=== PATIENT | male | born 1970 | race Caucasian/White ===

== ENCOUNTER → 2021-02-21 15:01 | Outpatient (BNVA) | payer OTHER, SELFPAY | PROVIDERS: Referring Provider Family Medicine; Visit Provider Orthopaedic Surgery | DX: S49.91XA Unspecified injury of right shoulder and upper arm, initial encounter (principal); X58.XXXA Exposure to other specified factors, initial encounter | CPT/HCPCS: 73030 ==

== ENCOUNTER 2022-07-04 09:37 | Day surgery (SDC) | payer OTHER, SELFPAY ==
[2022-07-03 13:41] VITALS: BMI 42.7
[2022-07-04] VITALS (9 sets, daily range): BP systolic 144–182; BP diastolic 79–114; PULSE 48–65; RESP 16–18; TEMP 36.1–36.2; O2SAT 91–97
[2022-07-04] MEDS: sodium chloride 0.9% 1,000 ML 30 ML IV (10:06)
[2022-07-04] MEDS: acetaminophen 500 mg Tablet 1000 MG PO (10:07)
[2022-07-04] MEDS: CELEcoxib 200 mg Capsule 400 MG PO (10:08)
--- NOTE | 2022-07-04 10:43 | ANES.PREANE2 ---
Pre-Anesthetic Assessment Height/Weight: Height 1.98 m Weight 167.829 kg Temp Pulse Resp BP Pulse Ox O2 Del Method 97.0 F L 65 17 161/110 97 07/04/22 09:52 07/04/22 09:52 07/04/22 09:52 07/04/22 09:52 07/04/22 09:52 07/04/22 09:54 Preop Diagnosis: Right shoulder pain Operation Date: 07/04/22 11:30 Proposed Procedures p right shoulder arthroscopy with debridement:18488 M75.01(Right) - Elio Armando MD Familial anesthetic complications: Slow to wake up after his back surgery Was Beta Eva taken within 24 hours: N/A Was Clonidine taken within 24 hours: N/A Last intake: Intake Last Liquid Date 07/03/22 Last Liquid Time 23:15 Last Solid Date 07/03/22 Last Solid Time 19:00 Social Tobacco and No alcohol Exam alert, oriented x 3, clear to auscultation bilaterally and regular rate & rhythm Airway Mallampati: Class IV Dentition: full Metabolic Morbid Obesity Anesthetic Plan ASA status: 2 Anesthesia: General Other: patient declining nerve block Risk of > 500 ml blood loss (7ml/kg in children): No Medications/Allergies Home Medications Medication Instructions Recorded Confirmed Last Taken Type No Known Home Medications 02/21/21 07/04/22 Unknown History Allergies Allergy/AdvReac Type Severity Reaction Status Date / Time No Known Allergies Allergy Verified 07/04/22 09:53 Current Medications Generic Name Dose Route Start Last Admin Trade Name Freq PRN Reason Stop Dose Admin Sodium Chloride 1,000 mls @ 30 mls/hr 07/04/22 10:00 07/04/22 10:06 Sodium Chloride 0.9% IV 07/05/22 09:59 30 mls/hr .Q24H RASHID Administration PFSH Anesthesia Social History Smoking and tobacco status: current every day smoker Alcohol intake: never Data Anesthesia Cardiac Studies: No Data to Display
--- NOTE | 2022-07-04 12:20 | P.HP_ITS ---
Same Day Surgery H&P Indication for Procedure/HPI DATE OF PROCEDURE: July 04, 2022 CHIEF COMPLAINT/INDICATIONFOR SURGICAL PROCEDURE: Right shoulder pain here for diagnostic arthroscopy right shoulder PREOP DIAGNOSIS: Right shoulder pain PLANNED PROCEDURE: Operation Date: 07/04/22 11:30 Proposed Procedures p right shoulder arthroscopy with debridement:95745 M75.01(Right) - Elio Armando MD 52 year old male patient here for follow up of his right shoulder pain.?Patient states that on 05/25/20 he had an injury at work while pushing a breaker bar, when the bar broke and slung his arm forward bend requiring it of back.? He described ongoing stinging in his arm.? He was able to continue with regular duties at work.? He was evaluated by Dr. Portillo and eventually had a surgery on 07/05/20.? He describes approximately 3 months of structured therapy thereafter.? He states therapy gave him a little improvement. He has been taking Ibuprofen for pain/discomfort, however he has been experiencing stomach pain, and unable to take oral anti-inflammatories.? It was rated and released by Dr. Portillo unable to return to work.? He was seen by me and MRI revealed cervical nerve abnormalities..? He states that in the interim of waiting for that work-up he returned to work and this June began experiencing pain in his left shoulder.? He was seen by a unknown neurologist and received an additional month of therapy without help.? He reports that he underwent a C5-C6 ACDF on 12/04/[address] Polo. He states that this relieved some of his previous symptoms, he describes less radiating pain and numbness down his arm.? However he continues to have weakness and pain in the anterior shoulder. He has been active in formal PT the last 6 weeks aimed at his shoulder and cervical spine lately with no? improvement in the shoulder.. He states he is unable to use his arm for anything.? He states he he has developed significant weakness he localizes constant and severe pain reaching well as a 8/10 intensity over the anterior shoulder.? He describes occasional feelings of popping.. Medications/Allergies* Home Medications Medication Instructions Recorded Confirmed Type No Known Home Medications 02/21/21 07/04/22 History Allergies/Adverse Reactions Allergy/AdvReac Type Severity Reaction Status Date / Time No Known Allergies Allergy Verified 07/04/22 09:53 Current Medications: Generic Name Dose Route Start Last Admin Trade Name Jose Luis PRN Reason Stop Dose Admin Sodium Chloride 1,000 mls @ 30 mls/hr 07/04/22 10:00 07/04/22 10:06 Sodium Chloride 0.9% IV 07/05/22 09:59 30 mls/hr .Q24H RASHID Administration Pertinent History/Comorbid Conditions* Social History Smoking and tobacco status: current every day smoker Alcohol intake: never Pertinent Exam Findings alert, oriented x 3, clear to auscultation bilaterally, regular rate & rhythm and operative site marked ?SHOULDER [right]:? RANGE OF MOTION:? EXAMINED EXTREMITY ? Flexion: 90 ? External Rotation: 30 ? Abduction: 70 ? Severe pain with all extremes of motion ? ? ? CONTRALAERAL EXTREMITY ? Flexion:180 ? External Rotation:60 ? Abduction External Rotation:90 ? Abduction Internal Rotation:? ? 70 INSTABILITY: Patient guards and I cannot appreciate instability ? ROTATOR CUFF STRENGTH: ? ? ? EXAMINED EXTREMITY ? Abduction Supination: Weak with pain ? Abduction Pronation: Weak with pain ? External Rotation: Weak with less pain ? Belly Press: Negative ? ? ? CONTRALATERAL EXTREMITY: ? Abduction Supination: Good without pain ? Abduction Pronation: Good without pain ? External Rotation: Good without pain ? Belly Press: Negative VASCULAR: Strong radial pulses bilaterally. ? Pertinent Data MRI images of the right shoulder dated 01/10/2022 [facility].? He has a flat acromion and absent distal clavicle.? The biceps tendon is absent.? No rotator cuff tearing or labral tearing is identified.? This is in agreement with the report of the same date. Recommendations Surgery/Procedure today Coding Level of Care Code Acute Organizational Effectiveness Consultant for Jasminag Sandy
[2022-07-04] MEDS: ceFAZolin 1,000 MG in sodium chloride 0.9% (plus) 50 ML 100 MG IV (12:35)
[2022-07-04] MEDS: ceFAZolin 2,000 MG in sodium chloride 0.9% (plus) 50 ML 100 MG IV (12:35)
[2022-07-04] MEDS: EPINEPHrine 1 mg/mL INJ 2 MG XX (13:26)
--- NOTE | 2022-07-04 13:34 | P.OP_ITS ---
Operative Report Date of procedure: July 04, 2022 Pre-op diagnosis: Preop Diagnosis Right shoulder pain Post-op diagnosis: same Procedure done: Examination under anesthesia, dignostic arthroscopy right shoulder with limited debridement anterior and superior labrum and adhesions subacromial space Pathology: none sent Surgeon: Elio Armando Anesthesia: General and Nerve Block (Interscalene) Estimated blood loss (mL): 5 Complications: None Findings: Patient had degenerative tearing over his superior and anterior labrum extending from approximately the 11 o'clock position to the 5 o'clock position. Is able to labral attachments the cells appear to be intact. He had absent biceps tend on consistent with a previous tenodesis. His humeral head AND glenoid were free of chondromalacia. His rotator cuff from the articular as well as the bursal aspect was intact. He had a flat acromion. The previously resected acromioclavicular joint was not inspected Condition: stable Disposition: PACU Brief History: See history and physical Procedure: Mr. Stanley was taken to the operating room and given a general anesthesia. He was given 3 g of Ancef. Initially the shoulder was examined under anesthesia. Both shoulders could be brought through an identical range of motion with 160 degrees of flexion, 60 degrees of external rotation and in 90 degrees of abduction, 90 degrees of external rotation and 60 degrees of internal rotation. He was positioned in the lateral position with the right arm and 20 pounds of traction due to its size. A timeout was performed. A scope cannula and trocar were driven into the glenohumeral joint. A anterior working portal was made through the rotator interval. The diagnostic portion arthroscopy was performed formed. Initial superficial degenerative tearing was seen in the anterior and superior labrum. The [employer] cautery was used to debride the degenerative portions of the labrum to a stable base. This revealed a well attached to the superior and anterior labrum. The biceps tendon was absent consistent with a previous tenodesis. The rotator cuff was inspected. There is some thinning in the central soft spot of the supraspinatus tendon but no full- thickness tearing and the cables certainly appear to be in tactic. The humeral head and glenoid were free of chondromalacia. The scope was then removed and directed to the subacromial space. A lateral working portal was opened up with a scalpel blade. The [employer] cautery was used to release adhesions between the anterior, posterior, and lateral deltoid and her rotator cuff. The rotator cuff itself was inspected and found to be healthy and free of tearing. Arthroscopic equipment was removed. Portals were closed with 3-0 Prolene. Sterile dressings were applied. The patient was placed in a sling, extubated, and taken recovery in stable condition.
[2022-07-04] MEDS: oxyCODONE 5 mg IR Tab/Cap PO (14:50)
--- NOTE | 2022-07-04 16:51 | ANE.PACU2 ---
Inpatient post-anesthesia follow up: Airway intact: Yes Vital signs: Temperature 97.2 F Pulse Rate 50 Respiratory Rate 17 Blood Pressure 174/114 Pulse Oximetry 94 Oxygen Delivery Me thod Room Air Oxygen Flow Rate 6 Fraction of Inspir ed Oxygen Hydration adequate: Yes Nausea and vomiting: No Pain level: 1 Mental status: Baseline
== END 2022-07-04 15:05 | disposition home or self-care (01) ==
PROVIDERS: PCP Family Medicine; Visit Provider Orthopaedic Surgery
PROC: (CPT 29805; principal; 2022-07-04 11:20)
DX: M75.01 Adhesive capsulitis of right shoulder (principal); M25.511 Pain in right shoulder; E66.01 Morbid (severe) obesity due to excess calories; Z68.41 Body mass index [BMI] 40.0-44.9, adult; F17.210 Nicotine dependence, cigarettes, uncomplicated
CPT/HCPCS: 29823; J0171; J0690; J1100; J2250; J2710; J2795; J3010; J3490; J7030